=== PATIENT | female | born 1985 ===

== ENCOUNTER 2017-12-31 08:35 | Emergency (ER) | payer MEDICAID ==
[2017-12-31 08:35] VITALS: BMI 25.1
[2017-12-31 08:44] VITALS: RESP 20
[2017-12-31] MEDS ORDERED: Lidocaine 1% Inj (20ml) INFIL STA (08:58)
--- NOTE | 2017-12-31 09:14 | C.PDOC ---
History Of Present Illness 32 year old female states she was walking in the snow slipped and fell landing on her left wrist and there was broken glass which she did not see and sustained laceration to her wrist. Denies any numbness, weakness or limited wrist or hand movement. Tetanus UTD. Time Seen by Provider: 12/31/17 08:52 Chief Complaint (Nursing): Abnormal Skin Integrity History Per: Patient History/Exam Limitations: no limitations Onset/Duration Of Symptoms: Hrs Current Symptoms Are (Timing): Still Present Past Medical History Reviewed: Historical Data, Nursing Documentation, Vital Signs Vital Signs: Last Vital Signs Temp 98.2 F 12/31/17 09:52 Pulse 77 12/31/17 09:52 Resp 20 12/31/17 09:52 BP 112/80 12/31/17 09:52 Pulse Ox 100 12/31/17 12:22 - Medical History PMH: No Chronic Diseases Surgical History: No Surg Hx, Family History: States: No Known Family Hx - Social History Hx Tobacco Use: No Hx Alcohol Use: No Hx Substance Use: No - Immunization History Hx Tetanus Toxoid Vaccination: No Hx Influenza Vaccination: No Hx Pneumococcal Vaccination: No Review Of Systems Eyes: Negative for: Vision Change Gastrointestinal: Negative for: Nausea, Vomiting Musculoskeletal: Positive for: Hand Pain Skin: Negative for: Rash Neurological: Negative for: Weakness, Numbness Physical Exam - Physical Exam Appears: Non-toxic, No Acute Distress Skin: Warm, Dry, Other (7cm linear lac to left volar wrist with mild active bleeding. 1cm superficial laceration to left volar lateral border of thumb. No bleeding) Head: Atraumatic, Normacephalic Eye(s): bilateral: Normal Inspection, EOMI Oral Mucosa: Moist Neck: Normal ROM, Supple Extremity: Normal ROM, No Tenderness, No Swelling, Other (laceration left wrist , tendon intact able to fully move wrist hand and digits) Pulses: Left Radial: Normal, Right Radial: Normal Neurological/Psych: Oriented x3, Normal Speech Gait: Steady ED Course And Treatment O2 Sat by Pulse Oximetry: 100 (RA) Pulse Ox Interpretation: Normal Laceration - Laceration Repair left wrist Wound Length (In cm): 7 Description Of Wound: Linear Wound Cleansed With: Sterile Saline Anesthesia: Lidocaine 1% Wound Examination: Irrigated With Saline, No FB With Wound Exploration, No Tendon Injury With Wound Exploration Wound Closure: Suture Suture Technique And Material Used: Interrupted (6), Nylon (4-0) Wound Complexity: Simple Medical Decision Making Medical Decision Making: Impression: Laceration Plan: * Tylenol * Xray of wrist to rule out foreign body vs fracture * Lidocaine and Suture repair Progress: Xray viewed showing no acute fracture or foreign body. suture repair by PA. Patient tolerated well. Bacitracin and dressing applied. Patient instructed on wound care. Patient to follow up for wound check and to return in 10-12 days for suture removal. Disposition Counseled Patient/Family Regarding: Diagnosis, Need For Followup, Rx Given - Disposition Disposition: HOME/ ROUTINE Disposition Time: 10:00 Condition: GOOD Additional Instructions: Keep dressing on for 24 hours then remove and may wash gently with soap and water, do not use alcohol or iodine solution. Change dressing 1-2 times daily. Keep area clean and dry. Return to ER if fever occurs, redness or swelling around wound, pus in the wound. Please follow up with your primary doctor, clinic, or urgent care for suture removal in 10-12 days Siga vistiendo romero 24 horas, luego retrelo y puede lavarse suavemente con agua y jabn, no use alcohol ni solucin de yodo. Cambie el aderezo 1-2 veces al da. Mantenga el desmond limpia y seca. Vuelva a la kacie de emergencias si presenta fiebre, enrojecimiento o hinchazn alrededor de la herida, pus en la herida. Realice un seguimiento con schulte mdico primario, clnica o atencin urgente para la extraccin de suturas en -12 moy. Maegan por permitir que el equipo de [employer] sea parte de schulte cuidado hoy. Schulte proveedor hoy fue PA Figueroa Prescriptions: Cephalexin [cephalexin] 500 mg PO Q12 #10 cap Instructions: Laceration Repair Forms: [employer] (Bulgarian), Work Excuse Print Language: ROMANIAN - POA Present On Arrival: None - Clinical Impression Clinical Impression: Laceration of wrist, left - PA / TERRAZZO JOURNEYMAN / Resident Statement MD/DO has reviewed & agrees with the documentation as recorded. - Scribe Statement The provider has reviewed the documentation as recorded by the Scribe Hemal Guillermo All medical record entries made by the Scribe were at my direction and personally dictated by me. I have reviewed the chart and agree that the record accurately reflects my personal performance of the history, physical exam, medical decision making, and the department course for this patient. I have also personally directed, reviewed, and agree with the discharge instructions and disposition.
[2017-12-31] MEDS ORDERED: Lidocaine 1% Inj (20ml) ONE (09:15)
--- NOTE | 2017-12-31 09:18 | RAD ---
PROCEDURE: Left Wrist Radiographs. HISTORY: patient fell on glass, r.o fb COMPARISON: None. FINDINGS: BONES: No fracture. JOINTS: Normal. No dislocation. SOFT TISSUES: Bandaging over the radial and volar side of the wrist. Soft tissues here or mottled. No radiopaque foreign body appreciated. OTHER FINDINGS: None. IMPRESSION: No radiopaque foreign body appreciated. No fracture or cortical interruption noted
[2017-12-31] MEDS ORDERED: Bacitracin 500 Units/gm Oint Foilpak UD ONE (09:40)
[2017-12-31] MEDS ORDERED: Tetanus/Diphtheria Toxoids 0.5 ml Syringe IM ONE ×2 (09:47→09:58)
[2017-12-31 09:53] VITALS: BP 112/80; PULSE 77; TEMP 98.2
[2017-12-31 12:04] VITALS: O2SAT 100
== END 2017-12-31 10:00 | disposition home or self-care (01) ==
LOC: C.ER 08:35
DX: S61.512A Laceration without foreign body of left wrist, initial encounter (principal); W01.0XXA Fall on same level from slipping, tripping and stumbling without subsequent striking against object, initial encounter; Z23 Encounter for immunization

== ENCOUNTER 2018-01-08 08:17 | Emergency (ER) | payer MEDICAID ==
[2018-01-08 08:22] VITALS: BMI 36.9
[2018-01-08 08:25] VITALS: PULSE 82; TEMP 98; O2SAT 99
[2018-01-08 09:25] VITALS: RESP 18
--- NOTE | 2018-01-08 10:17 | C.PDOC ---
History Of Present Illness Patient presents to ED for suture removal after repair 12/31/17. She denies any fever, discharge, pain, numbness or other complaints. Time Seen by Provider: 01/08/18 08:29 Chief Complaint (Nursing): Suture/Staple Removal History Per: Patient History/Exam Limitations: no limitations Onset/Duration Of Symptoms: Days Ago Current Symptoms Are (Timing): Better Past Medical History Reviewed: Historical Data, Nursing Documentation, Vital Signs Vital Signs: Last Vital Signs Temp 98 F 01/08/18 08:22 Pulse 82 01/08/18 08:22 Resp 18 01/08/18 09:10 BP Pulse Ox 99 01/08/18 10:57 - Medical History PMH: No Chronic Diseases Surgical History: Family History: States: No Known Family Hx - Social History Hx Tobacco Use: No Hx Alcohol Use: No Hx Substance Use: No - Immunization History Hx Tetanus Toxoid Vaccination: No Hx Influenza Vaccination: No Hx Pneumococcal Vaccination: No Review Of Systems Constitutional: Negative for: Fever, Chills Cardiovascular: Negative for: Chest Pain Gastrointestinal: Negative for: Nausea, Vomiting Neurological: Negative for: Numbness Physical Exam - Physical Exam Appears: Non-toxic, No Acute Distress Skin: Warm, Dry, No Rash Head: Atraumatic, Normacephalic Eye(s): bilateral: Normal Inspection Neck: Normal ROM Chest: Symmetrical Extremity: Normal ROM, Capillary Refill (<2 seconds), No Swelling, Other (left wrist sutures clean dry and intact, no erythema or discharge) Pulses: Left Radial: Normal, Right Radial: Normal Neurological/Psych: Oriented x3, Normal Speech ED Course And Treatment O2 Sat by Pulse Oximetry: 99 (RA) Pulse Ox Interpretation: Normal Medical Decision Making Medical Decision Making: sutures removed by me without any difficulty. steri strip applied to mid wound. new dry dressing applied. Disposition Counseled Patient/Family Regarding: Diagnosis, Need For Followup - Disposition Disposition: HOME/ ROUTINE Disposition Time: 09:05 Condition: GOOD Instructions: Stitches Removal Forms: [facility] (Hong Konger), Work Excuse Print Language: LATVIAN - POA Present On Arrival: None - Clinical Impression Clinical Impression: Removal of suture - PA / LEVI MAKER / Resident Statement MD/DO has reviewed & agrees with the documentation as recorded. - Scribe Statement The provider has reviewed the documentation as recorded by the Noamdonnie Guillermo All medical record entries made by the Jessica were at my direction and personally dictated by me. I have reviewed the chart and agree that the record accurately reflects my personal performance of the history, physical exam, medical decision making, and the department course for this patient. I have also personally directed, reviewed, and agree with the discharge instructions and disposition.
== END 2018-01-08 09:05 | disposition home or self-care (01) ==
LOC: C.ER 08:17
DX: Z48.02 Encounter for removal of sutures (principal)

== ENCOUNTER 2018-03-11 08:09 | Emergency (ER) | payer MEDICAID ==
[2018-03-11 08:10] VITALS: BMI 36.9
[2018-03-11 08:28] VITALS: BP 110/71; PULSE 66; RESP 18; TEMP 98.2; O2SAT 99
[2018-03-11 08:56] LABS: HCG,QUALITATIVE URINE NEGATIVE (NEGATIVE)
[2018-03-11 08:57] LABS: SQUAMOUS EPITHIAL 8 /hpf (0-5); URINE BACTERIA RARE (<OCC); URINE BILIRUBIN NEGATIVE (NEGATIVE); URINE BLOOD NEGATIVE (NEGATIVE); URINE CLARITY Hazy (Clear); URINE COLOR Yellow (YELLOW); URINE GLUCOSE (UA) NORMAL (Normal); URINE LEUKOCYTE ESTERASE 1+ Leu/uL (Negative); URINE PROTEIN NEGATIVE (NEGATIVE); URINE UROBILINOGEN NORMAL mg/dL (0.2-1.0)
--- NOTE | 2018-03-11 09:34 | C.PDOC ---
History Of Present Illness 32 yo female come in for evaluation of urinary frequency, burning gradually developed since yesterday associated with intermittent lower back pain. Otherwise, pt denies fever, chills, recent illness, sore throat, abd. pain, N/V/ D, hematuria, vaginal irritation or discharges. Ambulate to Ed for evaluation, not in any apparent distress. Time Seen by Provider: 03/11/18 08:42 Chief Complaint (Nursing): Female Genitourinary History Per: Patient Past Medical History Reviewed: Historical Data, Nursing Documentation, Vital Signs Vital Signs: Last Vital Signs Temp 98.2 F 03/11/18 08:25 Pulse 66 03/11/18 08:25 Resp 18 03/11/18 08:25 BP 110/71 03/11/18 08:25 Pulse Ox 99 03/11/18 08:25 - Medical History PMH: No Chronic Diseases Surgical History: Family History: States: Unknown Family Hx - Social History Hx Tobacco Use: No Hx Alcohol Use: No Hx Substance Use: No - Immunization History Hx Tetanus Toxoid Vaccination: No Hx Influenza Vaccination: Yes Hx Pneumococcal Vaccination: No Review Of Systems Except As Marked, All Systems Reviewed And Found Negative. Constitutional: Negative for: Fever, Chills ENT: Negative for: Throat Pain Cardiovascular: Negative for: Chest Pain Respiratory: Negative for: Cough, Shortness of Breath Gastrointestinal: Negative for: Nausea, Vomiting, Abdominal Pain, Diarrhea, Melena, Hematochezia, Hematemesis Genitourinary: Positive for: Dysuria, Frequency. Negative for: Incontinence, Hematuria, Vaginal Discharge, Vaginal Bleeding Musculoskeletal: Positive for: Back Pain Skin: Negative for: Rash Neurological: Negative for: Weakness, Numbness Physical Exam - Physical Exam Appears: Well, Non-toxic, No Acute Distress Skin: Normal Color, Warm, Dry, No Rash Head: Normacephalic Eye(s): bilateral: PERRL Nose: No Flaring Oral Mucosa: Moist, No Drooling Tongue: Normal Appearing Lips: Normal Appearing Throat: No Erythema, No Drooling Neck: Trachea Midline, Supple Cardiovascular: Rhythm Regular Respiratory: No Decreased Breath Sounds, No Accessory Muscle Use, No Stridor, No Wheezing Gastrointestinal/Abdominal: Soft, Tenderness (mild suprapubic), No Distention, No Guarding Back: No CVA Tenderness, Paraspinal Tenderness (mild lumbar) Extremity: Normal ROM, No Deformity, No Swelling Neurological/Psych: Oriented x3, Normal Speech ED Course And Treatment O2 Sat by Pulse Oximetry: 99 Pulse Ox Interpretation: Normal Progress Note: On re-evaluation, pt is afebrile, hemodynamiclay stable. Non- toxic, tolerate Po well in ED. ENT: no acute findings. Abd: benign, (-) CVA tenderness. back: (-) CVA tenderness. neuorlogicaly intact. UA results review (+) WBC. UCx- penidng. Pt has clinical findings c/w UTI. Pt advised. ref. to F/u with PMD in 2-3 days for re-eavl. return to Ed if any worsening or new changes. Disposition Counseled Patient/Family Regarding: Studies Performed, Diagnosis, Need For Followup, Rx Given - Disposition Referrals: [facility] [Outside] Disposition: HOME/ ROUTINE Disposition Time: 09:10 Condition: STABLE Additional Instructions: Encourage fluids take medication as prescribed Follow up with PMD in 2-3 days for re-evaluation. return to ED if any worsening or new changes. Prescriptions: Nitrofurantoin Macrocrystals [Macrobid] 1 cap PO BID #14 cap Phenazopyridine [Pyridium] 200 mg PO TID #6 tab Instructions: Urinary Tract Infections in Adults Forms: [facility] (Mongolian) - Clinical Impression Clinical Impression: Upper respiratory infection
== END 2018-03-11 10:05 | disposition home or self-care (01) ==
LOC: C.ER 08:09
DX: J06.9 Acute upper respiratory infection, unspecified (principal)